=== PATIENT | female | born 1985 | race Caucasian/White ===

== ENCOUNTER 2018-12-02 21:00 | Emergency (ER) | payer BC ==
[2018-12-02 21:05] VITALS: BP 140/82; PULSE 94; TEMP 98.3; BMI 21.5
--- NOTE | 2018-12-02 21:35 | PDOC ---
Documentation entered by Ronni Santoyo SCRIBE, acting as scribe for August Swenson MD. August Swenson MD: This documentation has been prepared by the Natanael saldaña Renju, SCRIBE, under my direction and personally reviewed by me in its entirety. I confirm that the documentation accurately reflects all work, treatment, procedures, and medical decision making performed by me. History of Present Illness - General Chief Complaint: Vaginal Bleeding Stated Complaint: VAGINAL BLEEDING Time Seen by Provider: 12/02/18 21:03 History Source: Patient Exam Limitations: No Limitations - History of Present Illness Initial Comments: 12/02/18 21:35 HPI The patient is a 33 year old female who presents to the emergency department for evaluation of vaginal bleeding. Patient reports a 3 day history of vaginal bleeding, noting a large amount of clots today prompting her to visit the ED for further evaluation. She denies previous history of clotting. Patient reports an episode of sharp substernal chest pain lasting for 1 minute which resolved by itself while urinating this evening. She endorses a history of this chest pain which she has been evaluated for. Patient states the end of her LMP was on 11/16/2018. She states she has scheduled an appointment with her OB Physician this . The patient denies shortness of breath, headache, and dizziness. Denies fevers, chills, nausea, vomiting, diarrhea, and constipation. PAST MEDICAL HISTORY: Heart Murmur PAST SURGICAL HISTORY: no significant history FAMILY HISTORY: no pertinent history SOCIAL HISTORY: Pt lives with family and is employed. MEDICATIONS: reviewed ALLERGIES: As per nursing notes Review of Systems General: No fevers or chills, no weakness, no weight loss HEENT: No change in vision. No sore throat,. No ear pain Cardiovascular: (+)chest pain. No shortness of breath Respiratory:No cough, or wheezing. Gastrointestinal: no nausea, vomiting, diarrhea or constipation, No rectal bleeding Genitourinary: (+)vaginal bleeding. No dysuria, hematuria, or frequency Musculoskeletal: No joint or muscle pain or swelling Neurologic: No headache, vertigo, dizziness or loss of consciousness Psychiatric: nor depression Skin: No rashes or easy bruising Endocrine: no increased thirst or abnormal weight change Allergic: no skin or latex allergy All other systems reviewed and normal Physical Exam: General: Well-nourished well-developed individual, no acute distress HEENT: Throat: Normal, tonsils normal, no erythema or exudate Neck: Supple, no meningeal signs, no lymphadenopathy Eyes:Pupils equal reactive and round, extraocular motion intact Chest: Nontender to palpation Cardiac: (+)2/6 diastolic murmur heard best at left sternal border. Respiratory: Lungs clear to auscultation bilateral Abdomen: Soft, nondistended, normal bowel sounds, nontender to palpation diffusely Extremities: Warm, dry, no cyanosis, clubbing, or edema Skin: No rashes Neuro: Alert and oriented x3, nonfocal exam, grossly intact, normal gait Psych: Normal mood and affect 12/02/18 21:33 Assessment plan: This a 33-year-old female who comes in complaining of some vaginal spotting. Patient. Finished recently and she now is concerned that she spotting again. Patient had a test that was done and negative Patient was reassured that this most likely is due to a change in her hormone levels that is not that uncommon for a woman in her 30s. Patient has an appointment with her OB doctor for 2 days from now and will keep the appointment. Patient discharged home. Past History - Past Medical History Allergies/Adverse Reactions: Allergies Allergy/AdvReac Type Severity Reaction Status Date / Time Fish Containing Products Allergy Unknown Verified 12/02/18 21:00 fish derived Allergy Unknown Verified 12/02/18 21:00 shellfish derived Allergy Unknown Verified 12/02/18 21:00 SEAFOOD Allergy Hives Uncoded 12/02/18 21:00 Home Medications: Ambulatory Orders Cholecalciferol (Vitamin D3) [Vitamin D3 -] 2,000 unit PO DAILY 12/02/18 Asthma: No Cancer: No Cardiac Disorders: Yes (H/O HEART MURMUR) COPD: No Diabetes: No HTN: No Seizures: No Thyroid Disease: No - Reproductive History (#): 3 Para: 2 - Suicide/Smoking/Psychosocial Hx Smoking Status: No Smoking History: Never smoked Have you smoked in the past 12 months: No Number of Cigarettes Smoked Daily: 0 Information on smoking cessation initiated: No Hx Alcohol Use: No Drug/Substance Use Hx: No Substance Use Type: None Hx Substance Use Treatment: No *Physical Exam - Vital Signs Last Vital Signs Temp Pulse Resp BP Pulse Ox 98.3 F 94 H 18 140/82 100 12/02/18 21:00 12/02/18 21:00 12/02/18 21:00 12/02/18 21:00 12/02/18 21:00 *DC/Admit/Observation/Transfer Diagnosis at time of Disposition: Vaginal spotting - Discharge Dispostion Disposition: HOME Condition at time of disposition: Stable Decision to Admit order: No - Referrals - Patient Instructions Additional Instructions: It is important that you keep your appointment with your OB doctor for 2 days from now. Return to the emergency department immediately with ANY new, persistent or worsening symptoms. Continue any medications as previously prescribed by your physician. You should follow up with your primary doctor as soon as possible regarding today's emergency department visit. . Please make sure your doctor reviews the results of your emergency evaluation. Thank you for coming to the Emergency Department today for your care. It was a pleasure to see you today. Please note that your evaluation is INCOMPLETE until you follow-up with your doctor. - Post Discharge Activity
== END 2018-12-02 21:56 | disposition home or self-care (01) ==
LOC: FER 21:00
DX: N93.9 Abnormal uterine and vaginal bleeding, unspecified (principal); R01.1 Cardiac murmur, unspecified
CPT/HCPCS: 84703; 99282-25

== ENCOUNTER 2023-03-04 17:58 | Emergency (ER) | payer BC ==
[2023-03-04 18:03] VITALS: BP 141/84; PULSE 73; RESP 18; TEMP 98.5; BMI 22.3
[2023-03-04 19:09] LABS: HCG,QUALITATIVE URINE Negative
[2023-03-04] MEDS ORDERED: SODIUM CHLORIDE 1,000 ML IV STA (19:39)
[2023-03-04 19:56] LABS: HEMOGLOBIN 12.8 G/dL (10.7-15.3); MCH 28.7 pg (25.7-33.7); MCHC 33.8 g/dl (32.0-36.0); MEAN CELL VOLUME 85.1 fl (80-96); PLATELET COUNT 152.9 10^3/uL (134-434); RBC 4.47 10^6/uL (3.60-5.2); RDW 14.5 % (11.6-15.6); WHITE BLOOD COUNT 9.7 10^3/uL (4.0-10.8)
[2023-03-04 20:11] LABS: ALBUMIN 4.3 g/dl (3.4-5.0); ALK PHOS 51 U/L (45-117); ANION GAP 10 MMOL/L (8-16); BILIRUBIN,TOTAL 0.3 mg/dl (0.2-1); BLOOD UREA NITROGEN 10.9 mg/dl (7-18); CALCIUM 9.1 mg/dl (8.5-10.1); CHLORIDE 104 mmol/L (98-107); CO2 24 mmol/L (21-32); CREATININE 0.7 mg/dl (0.6-1.3); GLUCOSE,RANDOM 92 mg/dl (74-106); POTASSIUM 3.6 mmol/L (3.5-5.1); SGOT/AST 15.3 U/L (15-37); SGPT/ALT 18.6 U/L (7-52); SODIUM 138 mmol/L (136-145); TOT PROT 6.6 g/dl (6.4-8.2)
[2023-03-04 21:43] LABS: PLATELET ESTIMATE ADEQUATE
== END 2023-03-04 21:01 | disposition home or self-care (01) ==
LOC: FER 17:58
PROC: 3E0337Z Introduction of Electrolytic and Water Balance Substance into Peripheral Vein, Percutaneous Approach (ICD-10-PCS; principal; 2023-03-04)
DX: M54.6 Pain in thoracic spine (principal)
CPT/HCPCS: 36415; 80053; 81003; 82550; 84484; 84703; 85027; 87086; 99284-25

== ENCOUNTER 2024-03-27 07:24 | Emergency (ER) | payer BC, OTHER ==
[2024-03-27 08:16] VITALS: BP 113/76; PULSE 89; RESP 18; TEMP 98.2; BMI 21.9
[2024-03-27 08:47] LABS: HCG,QUALITATIVE URINE Negative
[2024-03-27] MEDS ORDERED: KETOROLAC TROMETHAMINE 15 MG/ML VIAL ONE (09:39)
== END 2024-03-27 09:55 | disposition home or self-care (01) ==
LOC: FER 07:24
DX: R10.30 Lower abdominal pain, unspecified (principal); R10.2 Pelvic and perineal pain
CPT/HCPCS: 81003; 81015; 84703; 87086; 99283-25